=== PATIENT | male | born 1955 | race Caucasian/White ===

== ENCOUNTER → 2021-03-20 | Outpatient (CLI) | payer MEDICARE, BC ==
[~2021-03-20] MED LIST: AMOX-367 PO; ASPI81TA45 PO; ATOR-2 PO; CARV3.1212 PO; ENOXAPARIN SQ; LEVO50TA PO; MAGN400T50 PO; MULT-449 PO; NICO-587 TD; THIA100T67 PO
== END | disposition home or self-care (01) ==
LOC: CVU 09:14
PROVIDERS: ATTEND Internal Medicine Cardiovascular Disease
DX: I65.23 Occlusion and stenosis of bilateral carotid arteries (principal); I67.9 Cerebrovascular disease, unspecified; E78.2 Mixed hyperlipidemia; I10 Essential (primary) hypertension; Z87.891 Personal history of nicotine dependence; Z86.73 Personal history of transient ischemic attack (TIA), and cerebral infarction without residual deficits
CPT/HCPCS: 93880

== ENCOUNTER 2021-06-29 20:12 | Inpatient (IN) | payer MEDICARE, BC ==
[~2021-06-29] VITALS: Ht 172.7 cm; Wt 57.4 kg
[2021-06-29] MEDS ORDERED: ACETAMINOPHEN 500 MG TABLET PO ONE (21:00)
[2021-06-29] MEDS ORDERED: SODIUM CHLORIDE 0.9% 1,000ML IVBOLUS ONE ×2 (21:00)
[2021-06-29] MEDS ORDERED: CEFTRIAXONE 1,000 MG in DEXTROSE 5% 50 ML IVPB ONE (21:00)
[2021-06-29] MEDS ORDERED: SODIUM CHLORIDE FLUSH 10ML SYR IVF ONE ×2 (21:00)
[2021-06-29] MEDS ORDERED: ACETAMINOPHEN 500 MG TABLET ONE (21:28)
[2021-06-29 21:54] LABS: BASOPHILS % (AUTO) 0 % (0-1); EOSINOPHILS % (AUTO) 0 % (1-7); LYMPHOCYTES % (AUTO) 6 % (22-44); MEAN CORPUSCULAR HEMOGLOBIN 31.1 pg (27.5-34.5); MEAN CORPUSCULAR HGB CONC 32.6 g/dL (33.2-36.2); MONOCYTES % (AUTO) 9 % (2-9); NEUTROPHILS % (AUTO) 86 % (42-75); PLATELET COUNT 313 x10^3/uL (130-400); RED BLOOD COUNT 3.96 x10^6/uL (4.38-5.82); RED CELL DISTRIBUTION WIDTH 14.3 % (9.4-14.8)
[2021-06-29 21:57] LABS: MICROSCOPIC INDICATED
[2021-06-29 22:05] LABS: ALBUMIN 3.1 g/dL (3.4-5.0); ANION GAP 7 mmol/L (5-15); CALCIUM 9.2 mg/dL (8.5-10.1); CHLORIDE 106 mmol/L (98-107); CREATININE 2.34 mg/dL (0.7-1.3)
[2021-06-29 22:10] LABS: TROPONIN I < 0.015 ng/mL (0.000-0.045)
[2021-06-29] MEDS ORDERED: LACTATED RINGERS 1,000 ML IV ONE (22:30)
--- NOTE | 2021-06-29 23:05 | NUR ---
Attempt to call floor x1
--- NOTE | 2021-06-29 23:07 | NUR ---
sister, Shruthi, updated on pt status
[2021-06-29] MEDS ORDERED: ONDANSETRON 2MG/ML, 2ML IVPush PRN (23:30)
[2021-06-29] MEDS ORDERED: POLYETHYLENE GLYCOL 17 GM PACKET PO PRN (23:30)
[2021-06-29] MEDS ORDERED: OXYcodone IR 5MG TABLET PO PRN (23:30)
[2021-06-29] MEDS ORDERED: ACETAMINOPHEN 325 MG TABLET PO SCH (23:30)
[2021-06-29] MEDS ORDERED: MELATONIN 5 MG TABLET PO PRN (23:30)
--- NOTE | 2021-06-30 00:35 | NUR ---
Report to Kendra MADDEN
[2021-06-30] MEDS ORDERED: AVOID BENZODIAZEPINES MC PRN (01:00)
[2021-06-30 01:34] VITALS: BP 93/56
[2021-06-30] MEDS: LACTATED RINGERS 1,000 ML IV SCH ×3 (03:03→23:18)
[2021-06-30] MEDS: ENOXAPARIN 30 MG/0.3 ML SQ SCH (03:04)
[2021-06-30] MEDS: ACETAMINOPHEN 500 MG TABLET PO SCH ×5 (03:14→20:07)
[2021-06-30 05:32] LABS: MEAN CORPUSCULAR HEMOGLOBIN 31.8 pg (27.5-34.5); MEAN CORPUSCULAR HGB CONC 33.5 g/dL (33.2-36.2); MEAN PLATELET VOLUME 9.2 fL (7.4-10.4); PLATELET COUNT 285 x10^3/uL (130-400); RED BLOOD COUNT 3.54 x10^6/uL (4.38-5.82); RED CELL DISTRIBUTION WIDTH 14.2 % (9.4-14.8)
[2021-06-30 05:45] LABS: ANION GAP 5 mmol/L (5-15); CALCIUM 8.4 mg/dL (8.5-10.1); CHLORIDE 110 mmol/L (98-107)
[2021-06-30 05:47] LABS: CREATININE 1.89 mg/dL (0.7-1.3)
[2021-06-30 06:20] LABS: BAND#(MANUAL) 1.39 x10^3/uL; BANDS%(MANUAL) 7 % (0-7); LYMPHS% (MANUAL) 5 % (22-44); MONOS#(MANUAL) 1.39 x10^3/uL (0.3-2.7); MONOS% (MANUAL) 7 % (2-9); SEG#(MANUAL) 16.12 x10^3/uL (1.8-6.8); SEGS% (MANUAL) 81 % (42-75)
[2021-06-30 06:21] LABS: <PLATELET ESTIMATE> ADEQUATE; <PLT MORPHOLOGY> NORMAL PLT MORPH
[2021-06-30 06:22] LABS: <RBC MORPHOLOGY> NORMAL
[2021-06-30] MEDS: CEFTRIAXONE 2 GM in DEXTROSE 5% 50 ML IVPB SCH (06:33)
[2021-06-30 07:22] VITALS: BP 100/64
[2021-06-30 08:16] VITALS: BP_SYST 110; BP_SYST 95; BP_SYST 98; BP_DIAS 62; BP_DIAS 70
[2021-06-30 12:58] VITALS: BP 111/53
[2021-06-30 20:08] VITALS: BP 95/59
[2021-07-01 01:28] VITALS: BP 125/80
[2021-07-01] MEDS: ENOXAPARIN 30 MG/0.3 ML SQ SCH (03:07)
[2021-07-01] MEDS: ACETAMINOPHEN 500 MG TABLET PO SCH ×5 (04:10→22:08)
[2021-07-01 05:20] LABS: MEAN CORPUSCULAR HEMOGLOBIN 31.3 pg (27.5-34.5); MEAN CORPUSCULAR HGB CONC 32.9 g/dL (33.2-36.2); PLATELET COUNT 282 x10^3/uL (130-400); RED BLOOD COUNT 3.29 x10^6/uL (4.38-5.82); RED CELL DISTRIBUTION WIDTH 13.9 % (9.4-14.8)
[2021-07-01 05:29] LABS: ALBUMIN 2.2 g/dL (3.4-5.0); ANION GAP 6 mmol/L (5-15); CALCIUM 8.7 mg/dL (8.5-10.1); CHLORIDE 115 mmol/L (98-107)
[2021-07-01 05:32] LABS: CREATININE 0.94 mg/dL (0.7-1.3)
[2021-07-01 05:33] LABS: ALANINE AMINOTRANSFERASE 36 U/L (12-78); ALKALINE PHOSPHATASE 62 U/L (45-117); BILIRUBIN,TOTAL 0.3 mg/dL (0.2-1.0); TOTAL PROTEIN 5.6 g/dL (6.4-8.2)
[2021-07-01 05:57] LABS: BAND#(MANUAL) 1.14 x10^3/uL; BANDS%(MANUAL) 7 % (0-7); EOS#(MANUAL) 0.33 x10^3/uL (0.0-0.4); EOS% (MANUAL) 2 % (1-7); LYMPH#(MANUAL) 0.82 x10^3/uL (1-3.4); LYMPHS% (MANUAL) 5 % (22-44); MONOS#(MANUAL) 0.82 x10^3/uL (0.3-2.7); MONOS% (MANUAL) 5 % (2-9); SEGS% (MANUAL) 81 % (42-75)
[2021-07-01 05:58] LABS: <PLATELET ESTIMATE> ADEQUATE; <PLT MORPHOLOGY> NORMAL PLT MORPH; <RBC MORPHOLOGY> NORMAL
[2021-07-01] MEDS: CEFTRIAXONE 2 GM in DEXTROSE 5% 50 ML IVPB SCH (06:05)
[2021-07-01 07:45] VITALS: BP 131/79
[2021-07-01] MEDS ORDERED: POTASSIUM CHLORIDE 20 MEQ TAB.ER.PRT PO ONE (09:30)
[2021-07-01 10:41] LABS: CLOSTRIDIUM DIFFICILE ANTIGEN NEGATIVE; CLOSTRIDIUM DIFFICILE TOXIN NEGATIVE (Negative)
[2021-07-01 12:33] VITALS: BP 112/71
[2021-07-01 20:00] VITALS: BP 123/72
[2021-07-01] MEDS: LACTATED RINGERS 1,000 ML IV SCH (22:09)
[2021-07-02 02:39] VITALS: BP 132/81
[2021-07-02] MEDS: ACETAMINOPHEN 500 MG TABLET PO SCH ×3 (02:42→10:01)
[2021-07-02] MEDS: ENOXAPARIN 30 MG/0.3 ML SQ SCH (02:43)
[2021-07-02 05:02] LABS: BASOPHILS % (AUTO) 1 % (0-1); EOSINOPHILS % (AUTO) 10 % (1-7); LYMPHOCYTES % (AUTO) 16 % (22-44); MEAN CORPUSCULAR HEMOGLOBIN 31.7 pg (27.5-34.5); MEAN CORPUSCULAR HGB CONC 33.4 g/dL (33.2-36.2); MEAN PLATELET VOLUME 9.4 fL (7.4-10.4); MONOCYTES % (AUTO) 13 % (2-9); NEUTROPHILS % (AUTO) 59 % (42-75); PLATELET COUNT 312 x10^3/uL (130-400); RED BLOOD COUNT 3.23 x10^6/uL (4.38-5.82); RED CELL DISTRIBUTION WIDTH 14.2 % (9.4-14.8)
[2021-07-02 05:12] LABS: CHLORIDE 114 mmol/L (98-107)
[2021-07-02 05:48] LABS: % IRON SATURATION 10 % (20-55); ANION GAP 3 mmol/L (5-15); CALCIUM 8.6 mg/dL (8.5-10.1); CREATININE 1.01 mg/dL (0.7-1.3); IRON LEVEL 20 mcg/dL (65-175); TOTAL IRON BINDING CAPACITY 197 mcg/dL (250-450)
[2021-07-02] MEDS: LACTATED RINGERS 1,000 ML IV SCH (05:50)
[2021-07-02] MEDS: CEFTRIAXONE 2 GM in DEXTROSE 5% 50 ML IVPB SCH (06:01)
[2021-07-02 06:41] VITALS: BP 125/76
[2021-07-02] MEDS ORDERED: ENOXAPARIN 40 MG/0.4 ML SQ SCH (09:30)
[2021-07-02 10:00] VITALS: BP 139/83
[2021-07-02 10:05] VITALS: BP 146/92
[2021-07-02 12:50] VITALS: BP 162/94
[2021-07-02] MEDS ORDERED: CEPH-376 PO (13:03)
== END 2021-07-02 14:15 | DRG 871 ==
LOC: ED 21:20 → EDIP 22:50 → 4NE 06-30 00:48
PROVIDERS: ADMIT Internal Medicine; ATTEND Internal Medicine
DX: A41.9 Sepsis, unspecified organism (principal); R65.21 Severe sepsis with septic shock; N39.0 Urinary tract infection, site not specified; E44.0 Moderate protein-calorie malnutrition; Z68.1 Body mass index [BMI] 19.9 or less, adult; D64.9 Anemia, unspecified; E86.0 Dehydration; G90.9 Disorder of the autonomic nervous system, unspecified; I10 Essential (primary) hypertension; I73.9 Peripheral vascular disease, unspecified; R55 Syncope and collapse; Z86.73 Personal history of transient ischemic attack (TIA), and cerebral infarction without residual deficits; Z87.440 Personal history of urinary (tract) infections; Z87.891 Personal history of nicotine dependence
CPT/HCPCS: 36415; 71045; 76770; 80048; 80053; 81001; 82040; 82306; 82607; 83540; 83550; 83605; 83735; 83970; 84100; 84145; 84484; 85025; 87040; 87077; 87086; 87186; 87324; 93005; 96361; 96365; 99291; G0378; J0696; J1650; J7030; J7120